=== PATIENT | female | born 1985 ===

== ENCOUNTER → 2021-10-20 | Outpatient (CLI) | payer BC ==
--- NOTE | 2021-10-20 23:38 | US ---
EXAMINATION TYPE: US pelvic complete DATE OF EXAM: 10/20/2021 COMPARISON: NONE CLINICAL HISTORY: 36-year-old female N92.1 Excessive and frequent menstruation with irregular cycle. Heavy menstrual cycles with heavy cramping. TECHNIQUE: Transabdominal (TA). G0 Date of LMP: 10/04/2021 FINDINGS: EXAM MEASUREMENTS: Uterus: 6.7 x 3.7 x 4.2 cm Endometrial Stripe: 6 mm Right Ovary: 2.9 x 2.9 x 2.4 cm Left Ovary: 3.1 x 2.2 x 2.9 cm 1. Uterus: Anteverted and otherwise appears wnl 2. Endometrium: No obvious abnormality 3. Right Ovary: Appears wnl 4. Left Ovary: Cyst noted measuring 1.2 x 1.4 x 1.1 cm 5. Bilateral Adnexa: wnl 6. Posterior cul-de-sac: wnl IMPRESSION: A 1.4 cm dominant follicle or functional cyst of the left ovary. Otherwise, no specific abnormality o f the pelvis on transabdominal scanning.
--- NOTE | 2021-10-21 08:00 | US ---
EXAMINATION TYPE: US groin RT DATE OF EXAM: 10/20/2021 COMPARISON: NONE CLINICAL HISTORY: R59.0 Localized enlarged lymph nodes. Patient feels palpable lump in right groin; p atient states feeling it before since before [place] Multiple lymph nodes noted in the right groin at area of palp; largest measuring 1.7 x 0.5 x 0.8 cm. IMPRESSION: Multiple lymph nodes noted. Correlate clinically and follow-up as clinically indicated.
== END | disposition home or self-care (01) ==
LOC: RADUSWWP 15:25
PROVIDERS: ATTEND Family Medicine
DX: N83.02 Follicular cyst of left ovary (principal); R59.0 Localized enlarged lymph nodes
CPT/HCPCS: 76856